=== PATIENT | female | born 1935 | race Caucasian/White ===

== ENCOUNTER → 2021-07-14 | Outpatient (CLI) | payer MEDICARE ==
[~2021-07-14] MED LIST: ATOR40TA75 PO; CALC500T38 PO; CALCCHW4 PO; FAMO10TA53 PO; FISH1000 PO; HYDR-3490 PO; LEVO75TA4 PO; LOSA50TA88 PO; NORV5TAB PO; NOXI1TAB PO; POTA10TA67 PO; VITA400C53 PO; [UNRECOGNIZED DRUG - CODE] PO
[2021-07-14 14:25] LABS: ABG BASE EXCESS 1.7 (-2.0-2.0); ABG O2 SATURATION 95.3 % (95.0-99.0); ABG PARTIAL PRESSURE CO2 39.7 mmHg (35.0-45.0); ABG PARTIAL PRESSURE O2 77.2 mmHg (75.0-100.0); ABG STANDARD HCO3 25.9 MEQ/L (22.0-26.0); ABG TOTAL CO2 27.2 MEQ/L (23.0-31.0); ABG pH (ARTERIAL) 7.434 UNITS (7.350-7.450)
[2021-07-14 14:35] LABS: HEMOGLOBIN 13.7 g/dl (12.0-15.5); MEAN CORPUSCULAR HEMOGLOBIN 26.1 pg (27.0-33.0); MEAN CORPUSCULAR HGB CONC 31.9 g/dl (32.0-36.5); MEAN CORPUSCULAR VOLUME 81.9 fl (80.0-96.0); PLATELET COUNT, AUTOMATED 233 10^3/uL (150-450); RED BLOOD COUNT 5.25 10^6/uL (4.00-5.40); WHITE BLOOD COUNT 9.1 10^3/uL (4.0-10.0)
[2021-07-14 14:39] LABS: APPEARANCE, URINE CLOUDY (CLEAR); BACTERIA, URINE AUTO 1+ (NEGATIVE); BILIRUBIN, URINE AUTO NEGATIVE (NEGATIVE); BLOOD, URINE BLOOD NEGATIVE (NEGATIVE); COLOR, URINE YELLOW (YELLOW); GLUCOSE, URINE (UA) AUTO NEGATIVE (NEGATIVE); KETONE, URINE AUTO NEGATIVE (NEGATIVE); LEUKOCYTE ESTERASE, URINE AUTO 3+ (NEGATIVE); MUCUS, URINE SMALL (NEGATIVE); NITRITE, URINE AUTO NEGATIVE (NEGATIVE); PROTEIN, URINE AUTO 1+ mg/dL (NEGATIVE); RBC, URINE AUTO 7 /HPF (0-3); SPECIFIC GRAVITY URINE AUTO 1.018 (1.002-1.035); SQUAMOUS EPITHELIAL CELL UR AU 17 /HPF (0-6); TRANSITIONAL EPITHELIAL AUTO 1 /HPF; UROBILINOGEN, URINE AUTO 0.2 mg/dL (0.0-2.0); WBC, URINE AUTO 48 /HPF (0-3)
--- NOTE | 2021-07-14 14:45 | REP ---
INDICATION: PRE-OP COMPARISON: 08/24/2007. TECHNIQUE: PA/Lateral FINDINGS: Lungs: Clear, no infiltrate. Heart: Normal in size. Mediastinum: Mediastinal silhouette unremarkable. Mild calcific plaque is seen in the thoracic aorta. Pleural angles: Unremarkable.. Bones and soft tissues: Unremarkable. IMPRESSION: No acute pulmonary disease. <Electronically signed by Kevyn Fabian > 07/14/21 [id number]
[2021-07-14 14:46] LABS: INR 0.91; PROTHROMBIN TIME 12.7 SECONDS (12.7-14.5)
[2021-07-14 14:51] LABS: CREATININE FOR GFR 0.97 MG/DL (0.55-1.30); GLOMERULAR FILTRATION RATE 58.2 (>32); POTASSIUM SERUM 3.8 MEQ/L (3.5-5.1)
[2021-07-14 14:52] LABS: CALCIUM LEVEL 10.4 MG/DL (8.8-10.2)
--- NOTE | 2021-07-14 18:27 | ECGEPIP ---
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
== END ==
LOC: M ADMPAT 11:50 → EDSTATUS 13:00 → M SDC 13:19
PROVIDERS: ATTEND Thoracic Surgery (Cardiothoracic Vascular Surgery)
DX: Z01.812 Encounter for preprocedural laboratory examination (principal); C77.8 Secondary and unspecified malignant neoplasm of lymph nodes of multiple regions
CPT/HCPCS: 36415; 71046; 80048; 81001; 82803; 85027; 85610; 93005; U0002

== ENCOUNTER 2021-07-16 07:51 | Day surgery (SDC) | payer MEDICARE ==
[~2021-07-16] VITALS: Ht 167.6 cm; Wt 95.3 kg
[~2021-07-16 07:51] MED LIST changes: +LIDOCAINE 2% 100MG/5ML SDV (FOR ANES.) As Ordered ONE; +LR 1,000 ML IV ONE; +MIDAZOLAM INJ 2MG/2ML VIAL (J2250 PER 1MG) As Ordered ONE; +ROCURONIUM BROMIDE 50 MG/5 ML VIAL As Ordered ONE; +fentaNYL 100 MCG/2 ML INJECTION (J3010) As Ordered ONE; +propofoL 200 MG/20 ML VIAL As Ordered ONE
[2021-07-16] MEDS ORDERED: MUPIROCIN 2% OINT 22 GM TUBE As Ordered ONE (07:54)
[2021-07-16] MEDS ORDERED: THROMBIN SOLN 20,000 UNITS KIT As Ordered ONE (07:54)
[2021-07-16] MEDS ORDERED: CETACAINE SPRAY 5GM As Ordered ONE (07:54)
[2021-07-16] MEDS ORDERED: EPINEPHrine 1MG/10ML SYRINGE 1.5IN As Ordered ONE (07:54)
[2021-07-16] MEDS ORDERED: MUPIROCIN 2% OINT 22 GM TUBE TOP ONE (09:00)
[2021-07-16 09:04] LABS: INR 0.9; PARTIAL THROMBOPLASTIN TIME 31.3 SECONDS (25.9-37.0); PROTHROMBIN TIME 12.5 SECONDS (12.7-14.5)
[2021-07-16] MEDS ORDERED: BUPIVACAINE LIPOSOME/PF 1.3% 20ML VIAL (13.3MG/ML)(EXPAREL)(C9290 PER1MG) As Ordered ONE (10:08)
[2021-07-16] MEDS: ceFAZolin SOD 1 GM in D5W MINI-BAG PLUS 50 ML IV SCH ×2 (10:36→10:59)
[2021-07-16] MEDS ORDERED: ROCURONIUM BROMIDE 50 MG/5 ML VIAL As Ordered ONE (10:52)
[2021-07-16] MEDS ORDERED: METOCLOPRAMIDE INJ 10MG/2ML VIAL (J2765 PER 1) As Ordered ONE (10:57)
[2021-07-16] MEDS ORDERED: ONDANSETRON 4MG/2ML VIAL As Ordered ONE (10:57)
[2021-07-16] MEDS ORDERED: SUGAMMADEX SODIUM 500 MG/5 ML VIAL (BRIDION) As Ordered ONE (10:57)
[2021-07-16] MEDS ORDERED: ACETAMINOPHEN 1000MG 100ML IV BTL (OFIRMEV) (J0131 PER 10MG) As Ordered ONE (10:58)
[2021-07-16] MEDS ORDERED: fentaNYL 100 MCG/2 ML INJECTION (J3010) As Ordered ONE ×2 (11:00→11:15)
[2021-07-16] MEDS ORDERED: ONDANSETRON 4MG/2ML VIAL IV PRN (12:50)
[2021-07-16] MEDS ORDERED: PERCOCET 5MG/325MG TAB PO PRN (12:50)
[2021-07-16] MEDS ORDERED: fentaNYL 100 MCG/2 ML INJECTION (J3010) IV PRN (12:50)
[2021-07-16] MEDS ORDERED: LR 1,000 ML IV SCH (12:50)
[2021-07-16] MEDS ORDERED: METOCLOPRAMIDE INJ 10MG/2ML VIAL (J2765 PER 1) IV PRN (12:50)
--- NOTE | 2021-07-16 13:19 | REP ---
INDICATION: POST OP IN PACU. COMPARISON: 07/14/2021 PA and lateral exam TECHNIQUE: Portable FINDINGS: The technique utilized in obtaining the radiograph has magnified the cardiac silhouette and accentuated the interstitial markings. The lung bowden are hypoexpanded. No acute patchy parenchymal opacities or pleural effusions seem to have developed on this portable exam with hypoexpanded lungs. The pleural angles remain sharp. The cardiac silhouette is borderline. There is no change in the osseous structures. IMPRESSION: Findings likely technical. No definite acute cardiopulmonary disease. PA and lateral views of the chest are recommend <Electronically signed by Сергей Jack > 07/16/21 [id number]
[2021-07-16 14:25] VITALS: BP 138/57
--- NOTE | 2021-07-16 16:34 | RO ---
OPERATIVE NOTE DATE OF OPERATION: 07/16/2021 PREOPERATIVE DIAGNOSIS: Mediastinal lymphadenopathy. POSTOPERATIVE DIAGNOSIS: Metastatic adenocarcinoma. PROCEDURE: Mediastinoscopy and bronchoscopy. SURGEON: Dr. Munir Ku FINDINGS: She had a mediastinal node, which was just adjacent to the trachea just prior to the takeoff of the right upper lobe bronchus. It was isolated and was found to be very hard. A considerable amount of time was spent grasping the node and being able to biopsy it. Further dissection came back metastatic adenocarcinoma, unknown primary at this time. Final pathology pending. DESCRIPTION OF PROCEDURE: Under satisfactory general single-lumen tube endotracheal anesthesia, the bronchoscope was passed into the tracheobronchial tree. Tracheobronchial tree had shown a normal branching pattern, and there were no endobronchial lesions. She had scant secretions. Patient was then prepped and draped in the usual sterile fashion, and a suprasternal notch incision was made. Dissection was carried down to the subcutaneous tissue, and the strap muscles were divided. The pretracheal fascia was entered, and with finger dissection I was able to get below the innominate artery. Mediastinoscope was introduced into the chest, and with both sharp and blunt dissection, including that with the cautery, the scope could eventually be advanced to just above the chhaya. The overlying fatty mediastinal tissue was cauterized and then dissected with the long suction dissector. Finally the mediastinal node was found. It looked to be quite at first, but upon further dissection there were spots of white streaking through it. This node was then biopsied with considerable difficulty, as it would continually slip out of the biopsy forceps jaws. Finally, using both straight and up-biter forceps to stabilize and put traction on the node, biopsies were obtained. They were sent for frozen sections with the above results. After achieving adequate hemostasis, the mediastinoscope was withdrawn, and the strap muscles were closed with running 0 Vicryl suture, and the subcutaneous tissue was closed by use of the same. Exparel was injected in the subcutaneous tissue and the strap muscles. It was also injected subdermally. Skin was closed with running 4-0 Monocryl subcuticular suture. Patient tolerated the procedure well and left the operating room in satisfactory condition to the recovery room. It should be noted that during the dissection I did see lung. I was not sure whether the lung had a small covering of pleura. Lung was inflated prior to closure, and a chest x-ray will be taken in the recovery room.
== END 2021-07-16 14:38 | disposition home or self-care (01) ==
LOC: M SDC 07:51
PROVIDERS: ATTEND Thoracic Surgery (Cardiothoracic Vascular Surgery)
DX: C77.8 Secondary and unspecified malignant neoplasm of lymph nodes of multiple regions (principal); I10 Essential (primary) hypertension; E03.9 Hypothyroidism, unspecified; E66.9 Obesity, unspecified; Z87.891 Personal history of nicotine dependence; Z85.3 Personal history of malignant neoplasm of breast; Z85.048 Personal history of other malignant neoplasm of rectum, rectosigmoid junction, and anus; Z92.3 Personal history of irradiation; Z88.8 Allergy status to other drugs, medicaments and biological substances
CPT/HCPCS: 31622; 36415; 39402; 71045; 85610; 85730; 86850; 86900; 86901; 88305; 88331; 88341; 88342; C9290; J0131; J0690; J2250; J2405; J2765; J3010